=== PATIENT | male | born 1980 | race Caucasian/White ===

== ENCOUNTER 2020-03-03 15:33 | Outpatient (CLI) | payer OTHER | END 2020-03-03 15:48 | disposition home or self-care (01) | LOC: LAB 15:33 | DX: Z20.828 Contact with and (suspected) exposure to other viral communicable diseases (principal) ==

== ENCOUNTER 2020-03-10 15:57 | Outpatient (CLI) | payer OTHER | END 2020-03-10 18:00 | disposition home or self-care (01) | LOC: LAB 15:57 | DX: Z20.828 Contact with and (suspected) exposure to other viral communicable diseases (principal) ==

== ENCOUNTER → 2020-06-24 12:35 | Outpatient (CLI) | payer OTHER | END | disposition home or self-care (01) | LOC: LAB 12:35 | DX: U07.1 COVID-19 (principal) ==